=== PATIENT | male | born 1945 | race Caucasian/White ===

== ENCOUNTER → 2016-08-11 | Outpatient (CLI) | payer MEDICARE ==
[~2016-08-11] MED LIST: AMIT50TA3 PO; AMLO10TA82; AMLODIPINE; ASP81TEC; ASP81TEC PO; ATOR20TA66 PO; ATR20T PO; CLOP75TA PO; CYCL10TA9 PO; DICL100G20 TOP; ENAL2.5T PO; ENLP5T PO; FENO105T3 PO; FENO134C; FLUR30CA13; GEMF600T3 PO; HYDR-3714 PO; HYDR1CAP2; HYDR1CAP2 PO; INSU100I14 SQ; INSU100V6 SQ; LAMI100T PO; LANTUS; METO100T2 PO; METO50TA7 PO; MTP50T PO; NTR.4SL SL; OMEG-12 PO; PRM25T PO; ROSU20TA14 PO; SIRO1TAB PO; SIRO2TAB2 PO; TEMA30CA PO; ZOLP10TA5 PO
[2016-08-11 08:49] LABS: BASOPHILS % (AUTO) 1 % (0-10); EOSINOPHILS # (AUTO) 0.1 10^3/uL (0.0-0.3); EOSINOPHILS % (AUTO) 3 % (0-10); LYMPHOCYTES # (AUTO) 0.9 X 10^3 (1.0-4.0); LYMPHOCYTES % (AUTO) 27 % (12-44); MEAN CORPUSCULAR HEMOGLOBIN 25 PG (25-34); MEAN CORPUSCULAR HGB CONC 30 G/DL (32-36); MEAN CORPUSCULAR VOLUME 82 FL (80-99); MONOCYTES # (AUTO) 0.3 X 10^3 (0.0-1.0); MONOCYTES % (AUTO) 9 % (0-12); NEUTROPHILS # (AUTO) 1.9 X 10^3 (1.8-7.8); NEUTROPHILS % (AUTO) 60 % (42-75); RED BLOOD COUNT 4.12 10^6/uL (4.35-5.85); RED CELL DISTRIBUTION WIDTH 18.4 % (10.0-14.5); WHITE BLOOD COUNT 3.1 10^3/uL (4.3-11.0)
[2016-08-11 09:12] LABS: PLATELET COUNT 63 10^3/uL (130-400)
[2016-08-11 09:13] LABS: ALBUMIN 3.3 G/DL (3.2-4.5); BILIRUBIN,TOTAL 0.3 MG/DL (0.1-1.0); CALCIUM 8.5 MG/DL (8.5-10.1); CREATININE SERUM 3.54 MG/DL (0.60-1.30); MAGNESIUM 1.5 MG/DL (1.8-2.4); PHOSPHORUS 2.5 MG/DL (2.3-4.7); POTASSIUM 4.6 MMOL/L (3.6-5.0); TOTAL PROTEIN 6.3 G/DL (6.4-8.2)
== END ==
LOC: LAB 08:32
PROVIDERS: ATTEND Internal Medicine
DX: N17.9 Acute kidney failure, unspecified (principal); D63.1 Anemia in chronic kidney disease; N18.9 Chronic kidney disease, unspecified
CPT/HCPCS: 36415; 80053; 83735; 84100; 85025

== ENCOUNTER → 2016-09-01 | Outpatient (CLI) | payer MEDICARE ==
[2016-09-01 10:16] LABS: MEAN CORPUSCULAR HEMOGLOBIN 24 PG (25-34); MEAN CORPUSCULAR HGB CONC 31 G/DL (32-36); MEAN CORPUSCULAR VOLUME 79 FL (80-99); PLATELET COUNT 66 10^3/uL (130-400); RED BLOOD COUNT 4.65 10^6/uL (4.35-5.85); RED CELL DISTRIBUTION WIDTH 19.4 % (10.0-14.5); WHITE BLOOD COUNT 3.5 10^3/uL (4.3-11.0)
[2016-09-01 10:37] LABS: ALBUMIN 3.9 G/DL (3.2-4.5); CALCIUM 9.3 MG/DL (8.5-10.1); CREATININE SERUM 2.44 MG/DL (0.60-1.30); MAGNESIUM 1.6 MG/DL (1.8-2.4); PHOSPHORUS 2.4 MG/DL (2.3-4.7); POTASSIUM 4.1 MMOL/L (3.6-5.0); URIC ACID 7.2 MG/DL (2.6-7.2)
[2016-09-01 10:38] LABS: BILIRUBIN,URINE NEGATIVE (NEGATIVE); KETONES,URINE NEGATIVE (NEGATIVE); LEUKOCYTE ESTERASE ,URINE NEGATIVE (NEGATIVE); NITRITE,URINE NEGATIVE (NEGATIVE); PH,URINE 5 (5-9); PROTEIN,URINE 1+ (NEGATIVE); UROBILINOGEN,URINE NORMAL (NORMAL)
[2016-09-01 10:49] LABS: SQUAMOUS EPITHELIAL CELL,UR RARE /HPF
[2016-09-01 11:02] LABS: PROTEIN/CREATININE RATIO 0.2
[2016-09-04 08:04] LABS: CALCIUM PARA THYROID HORMONE 8.9 mg/dL (8.5-10.5); FOLIC ACID 7.4 ng/mL (1.5-24.0)
== END ==
LOC: LAB 09:44
PROVIDERS: ATTEND Internal Medicine Nephrology
DX: D63.1 Anemia in chronic kidney disease (principal); I12.9 Hypertensive chronic kidney disease with stage 1 through stage 4 chronic kidney disease, or unspecified chronic kidney disease; N18.4 Chronic kidney disease, stage 4 (severe); E87.2 Acidosis
CPT/HCPCS: 36415; 80069; 81000; 82306; 82570; 82607; 82728; 82746; 83540; 83735; 83970; 84156; 84550; 85027

== ENCOUNTER → 2016-10-03 | Outpatient (CLI) | payer MEDICARE ==
[2016-10-03 09:38] LABS: BILIRUBIN,URINE NEGATIVE (NEGATIVE); KETONES,URINE NEGATIVE (NEGATIVE); LEUKOCYTE ESTERASE ,URINE NEGATIVE (NEGATIVE); NITRITE,URINE NEGATIVE (NEGATIVE); PH,URINE 5 (5-9); PROTEIN,URINE 3+ (NEGATIVE); UROBILINOGEN,URINE NORMAL (NORMAL)
[2016-10-03 09:38] LABS: BASOPHILS % (AUTO) 0 % (0-10); EOSINOPHILS # (AUTO) 0.1 10^3/uL (0.0-0.3); EOSINOPHILS % (AUTO) 3 % (0-10); LYMPHOCYTES # (AUTO) 1.1 X 10^3 (1.0-4.0); LYMPHOCYTES % (AUTO) 29 % (12-44); MEAN CORPUSCULAR HEMOGLOBIN 25 PG (25-34); MEAN CORPUSCULAR HGB CONC 30 G/DL (32-36); MEAN CORPUSCULAR VOLUME 83 FL (80-99); MONOCYTES # (AUTO) 0.3 X 10^3 (0.0-1.0); MONOCYTES % (AUTO) 8 % (0-12); NEUTROPHILS # (AUTO) 2.3 X 10^3 (1.8-7.8); NEUTROPHILS % (AUTO) 60 % (42-75); PLATELET COUNT 77 10^3/uL (130-400); RED BLOOD COUNT 4.61 10^6/uL (4.35-5.85); RED CELL DISTRIBUTION WIDTH 20.7 % (10.0-14.5); WHITE BLOOD COUNT 3.8 10^3/uL (4.3-11.0)
[2016-10-03 09:51] LABS: SQUAMOUS EPITHELIAL CELL,UR RARE /HPF
[2016-10-03 09:51] LABS: ALBUMIN 3.8 G/DL (3.2-4.5); CREATININE SERUM 2.32 MG/DL (0.60-1.30); MAGNESIUM 1.7 MG/DL (1.8-2.4); PHOSPHORUS 3.1 MG/DL (2.3-4.7); POTASSIUM 4.4 MMOL/L (3.6-5.0); URIC ACID 7.9 MG/DL (2.6-7.2)
[2016-10-03 09:58] LABS: PROTEIN/CREATININE RATIO 0.39
[2016-10-04 07:07] LABS: CALCIUM PARA THYROID HORMONE 8.7 mg/dL (8.5-10.5); FOLIC ACID 9.4 ng/mL (1.5-24.0)
== END ==
LOC: LAB 09:00
PROVIDERS: ATTEND Internal Medicine Nephrology
DX: I12.9 Hypertensive chronic kidney disease with stage 1 through stage 4 chronic kidney disease, or unspecified chronic kidney disease (principal); N18.4 Chronic kidney disease, stage 4 (severe); D63.1 Anemia in chronic kidney disease
CPT/HCPCS: 36415; 80069; 81000; 82306; 82570; 82607; 82728; 82746; 83540; 83735; 83970; 84156; 84550; 85025

== ENCOUNTER → 2016-11-06 | Outpatient (CLI) | payer MEDICARE ==
[2016-11-06 12:20] LABS: MEAN CORPUSCULAR HEMOGLOBIN 25 PG (25-34); MEAN CORPUSCULAR HGB CONC 30 G/DL (32-36); MEAN CORPUSCULAR VOLUME 83 FL (80-99); PLATELET COUNT 60 10^3/uL (130-400); RED BLOOD COUNT 4.88 10^6/uL (4.35-5.85); RED CELL DISTRIBUTION WIDTH 18.9 % (10.0-14.5); WHITE BLOOD COUNT 4.3 10^3/uL (4.3-11.0)
[2016-11-06 12:21] LABS: BILIRUBIN,URINE NEGATIVE (NEGATIVE); KETONES,URINE NEGATIVE (NEGATIVE); LEUKOCYTE ESTERASE ,URINE NEGATIVE (NEGATIVE); NITRITE,URINE NEGATIVE (NEGATIVE); PH,URINE 5 (5-9); PROTEIN,URINE 2+ (NEGATIVE); UROBILINOGEN,URINE NORMAL (NORMAL)
[2016-11-06 12:29] LABS: SQUAMOUS EPITHELIAL CELL,UR 0-2 /HPF
[2016-11-06 12:38] LABS: PROTEIN/CREATININE RATIO 0.59
[2016-11-06 12:42] LABS: ALBUMIN 3.9 GM/DL (3.2-4.5); CALCIUM 9.4 MG/DL (8.5-10.1); CREATININE SERUM 2.18 MG/DL (0.60-1.30); MAGNESIUM 1.6 MG/DL (1.8-2.4); PHOSPHORUS 2.7 MG/DL (2.3-4.7); POTASSIUM 4.6 MMOL/L (3.6-5.0); URIC ACID 8.8 MG/DL (2.6-7.2)
[2016-11-07 08:06] LABS: FOLIC ACID 12.5 ng/mL (1.5-24.0)
== END ==
LOC: LAB 11:39
PROVIDERS: ATTEND Internal Medicine Nephrology
DX: D63.1 Anemia in chronic kidney disease; E87.2 Acidosis; N18.4 Chronic kidney disease, stage 4 (severe); I12.9 Hypertensive chronic kidney disease with stage 1 through stage 4 chronic kidney disease, or unspecified chronic kidney disease
CPT/HCPCS: 36415; 80069; 81000; 82306; 82570; 82607; 82728; 82746; 83540; 83735; 83970; 84156; 84550; 85027

== ENCOUNTER 2016-12-11 19:44 | Inpatient (IN) | payer MEDICARE ==
[~2016-12-11] VITALS: Ht 182.9 cm; Wt 86.6 kg
[2016-12-11] MEDS ORDERED: NS IV 1000 ML 1,000 ML IV ONE ×2 (20:20→21:27)
--- NOTE | 2016-12-11 20:20 | ED Fall/Injury ---
General Chief Complaint: General Problems/Pain Stated Complaint: CHEST PAIN/BODY NUMBNESS Source: patient, family (niece) Exam Limitations: clinical condition History of Present Illness Time seen by provider: 20:12 Initial Comments Patient comes ER with a primary complaint of having fallen in his home on the ground floor in the kitchen sometime between Sunday and today. He does not member the events immediately before during or after the fall. He is in pain all over. Says mostly though it is back and hips. He is not on any pain relievers. His niece says that he is a little confused right now and he drove over to her house this evening and was honking on the horn so she brought him to the ER. She says she went to his house and got his medicines and brought them here and that there is a large mess in the kitchen where he looks like he had laid there for a long time. Patient is not having any fevers, chills, shortness of breath, chest pain, nausea. He's had a liver transplant and is on immunosuppressants. He was recently put on some steroids for a bad case of poison bear. About 2 weeks ago he started in an experimental drug related to his transplant but is not sure what is called. He was 3 months ago in the hospital in [place] with C. difficile colitis and had a bad kidney injury. He was told by his doctor that he may need kidney transplants as well. He has type 2 diabetes. Allergies and Home Medications Allergies Coded Allergies: No Known Drug Allergies (Unverified , 08/24/09) Home Medications Amitriptyline Hcl 50 Mg Tab, 50 MG PO HS, (Reported) Aspirin 81 Mg Tabec, 81 MG PO DAILY, (Reported) Atorvastatin 20 Mg Tablet, 10 MG PO HS, (Reported) TAKES ONE HALF (20MG) TABLET AT BEDTIME Enalapril Maleate 5 Mg Tab, 5 MG PO DAILY, (Reported) Fenofibric Acid 105 Mg Tablet, 105 MG PO DAILY, (Reported) Hydrocodone Bit/Acetaminophen 1 Tab Tablet, 1 TAB PO BID PRN for SEVERE PAIN, ( Reported) NEEDED FOR SEVERE PAIN 5/325MG TABLET Insulin Aspart 100 Unit/1 Ml Insuln.pen, 7 UNITS SQ AC, (Reported) Insulin Glargine,Hum.rec.anlog 100 Unit/1 Ml Vial, 54 UNIT SQ HS, (Reported) Lamivudine 100 Mg Tablet, 50 MG PO DAILY, (Reported) TAKES ONE-HALF (100MG) TABLET DAILY Metoprolol Tartrate 100 Mg Tablet, 50 MG PO BID, (Reported) TAKE ONE-HALF (100MG) TABLET TWICE A DAY Nitroglycerin 0.4 Mg Tab, 0 SL UD PRN for CHEST PAIN, (Reported) 1 TABLET EVERY 5 MINUTES UPTO 3 DOSES NEEDED FOR CHEST PAIN Sirolimus 1 Mg Tablet, 2 MG PO DAILY, (Reported) TAKES 2 (1 MG) TABLETS DAILY Zolpidem Tartrate 10 Mg Tablet, 10 MG PO HS PRN for SLEEP, (Reported) NEEDED FOR SLEEP Constitutional: No chills, No diaphoresis, No fever, No malaise Eyes: Denies Blindness, Denies Blurred Vision, Denies Drainage, Denies Pain Ears, Nose, Mouth, Throat: denies ear pain, denies ear discharge Respiratory: No cough, No dyspnea on exertion, No short of breath Cardiovascular: see HPI, No chest pain, No palpitations, syncope, No vascular heart diseas Gastrointestinal: abdominal pain (diffuse), No constipation, No diarrhea, No dysphagia, No nausea, No vomiting Genitourinary: No discharge, No dysuria, No frequency Musculoskeletal: back pain, No joint pain, No joint swelling Skin: No pruritus, No rash Psychiatric/Neurological: Denies Headache, Denies Numbness, Denies Paresthesia , Denies Seizure Past Uyhwews-Zuczzt-Edzqij Hx Patient Social History Alcohol Use: Denies Use Recreational Drug Use: No Smoking Status: Never a Smoker Recent Foreign Travel: No Contact w/Someone Who Travel: No Recent Hopitalizations: Yes (04/2011 [facility] [employer]) Immunizations Up To Date Date of Pneumonia Vaccine: Jan 07, 2013 Date of Influenza Vaccine: May 01, 2011 Surgeries Surgeries: CABG, Liver Transplant Respiratory Hx Respiratory Disorders: No Cardiovascular Hx Cardiac Disorders: No Cardiac Disorders: Coronary Artery Disease, Heart Attack, High Cholesterol, Hypertension Neurological Hx Neurological Disorders: No Neurological Disorders: Parkinson's Disease Reproductive System Hx Reproductive Disorders: No Sexually Transmitted Disease: Yes (hep b) Genitourinary Hx Genitourinary Disorders: No Genitourinary Disorders: Renal Failure Gastrointestinal Hx Gastrointestinal Disorders: No Gastrointestinal Disorders: Hepatitis Musculoskeletal Hx Musculoskeletal Disorders: No Musculoskeletal Disorders: Chronic Back Pain Endocrine Hx Endocrine Disorders: Yes Endocrine Disorders: Diabetes, Insulin dep HEENT HX ENT Disorders: No Cancer Hx Cancer: No Cancer: Skin Psychosocial Hx Psychiatric Problems: No Blood Transfusions Hx Blood Disorders: No Physical Exam Vital Signs Vital Sign - Last 12Hours 12/11/16 20:11 Temp 99.4 Pulse 106 Resp 26 B/P (MAP) 175/97 Pulse Ox 96 Capillary Refill : General Appearance: WD/WN, mild distress HEENT: PERRL/EOMI, normal ENT inspection, TMs normal, other (mucous membranes are dry) Neck: full range of motion, supple, normal inspection, tender lateral Cardiovascular: normal peripheral pulses, regular rate, rhythm, no edema, no murmur Respiratory: chest non-tender, lungs clear, normal breath sounds Gastrointestinal: normal bowel sounds, soft, no organomegaly, no pulsatile mass , tenderness (all 4 quadrants), No hernia Rectal: normal exam Back: normal inspection, vertebral tenderness (thoracic and lumbar) Extremities: normal range of motion, non-tender, normal inspection, no pedal edema, normal capillary refill 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/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, alert, other (oriented times self and place but not situation) Skin: normal color, warm/dry, other (scattered abrasions on the shoulders and neck from either poison bear or bee stings per patient) Lymphatic: no adenopathy Progress/Results/Core Measures Results/Orders Lab Results Laboratory Tests Test 12/11/16 19:56 12/11/16 20:40 12/11/16 21:03 Range/Units White Blood Count 4.7 4.3-11.0 10^3/uL Red Blood Count 5.38 4.35-5.85 10^6/uL Hemoglobin 13.7 13.3-17.7 G/DL Hematocrit 44 40-54 % Mean Corpuscular Volume 81 80-99 FL Mean Corpuscular Hemoglobin 26 25-34 PG Mean Corpuscular Hemoglobin Concent 31 L 32-36 G/DL Red Cell Distribution Width 17.8 H 10.0-14.5 % Platelet Count 72 L 130-400 10^3/uL Mean Platelet Volume 7.4-10.4 FL Neutrophils (%) (Auto) 51 42-75 % Lymphocytes (%) (Auto) 39 12-44 % Monocytes (%) (Auto) 9 0-12 % Eosinophils (%) (Auto) 1 0-10 % Basophils (%) (Auto) 0 0-10 % Neutrophils # (Auto) 2.4 1.8-7.8 X 10^3 Lymphocytes # (Auto) 1.8 1.0-4.0 X 10^3 Monocytes # (Auto) 0.4 0.0-1.0 X 10^3 Eosinophils # (Auto) 0.1 0.0-0.3 10^3/uL Basophils # (Auto) 0.0 0.0-0.1 10^3/uL Prothrombin Time 13.2 12.2-14.7 SEC INR Comment 1.0 0.8-1.4 Activated Partial Thromboplast Time 29 24-35 SEC Sodium Level 134 L 135-145 MMOL/L Potassium Level 4.7 3.6-5.0 MMOL/L Chloride Level 102 98-107 MMOL/L Carbon Dioxide Level 16 L 21-32 MMOL/L Anion Gap 16 H 5-14 MMOL/L Blood Urea Nitrogen 42 H 7-18 MG/DL Creatinine 2.89 H 0.60-1.30 MG/DL Estimat Glomerular Filtration Rate 22 BUN/Creatinine Ratio 15 Glucose Level 325 H 70-105 MG/DL Calcium Level 9.8 8.5-10.1 MG/DL Phosphorus Level 3.9 2.3-4.7 MG/DL Magnesium Level 2.4 1.8-2.4 MG/DL Total Bilirubin 0.9 0.1-1.0 MG/DL Aspartate Amino Transf (AST/SGOT) 16 5-34 U/L Alanine Aminotransferase (ALT/SGPT) 18 0-55 U/L Alkaline Phosphatase 153 H 40-136 U/L Total Creatine Kinase 118 30-200 U/L Creatine Kinase MB 1.0 <6.6 NG/ML Troponin I < 0.30 <0.30 NG/ML Total Protein 7.7 6.4-8.2 GM/DL Albumin 3.9 3.2-4.5 GM/DL Lipase 9 8-78 U/L Thyroid Stimulating Hormone (TSH) 1.48 0.35-4.94 UIU/ML Acetaminophen Level < 10 L 10-30 UG/ML Serum Alcohol < 10 <10 MG/DL Lactic Acid Level 1.06 0.50-2.00 MMOL/L Ammonia 27 11-32 UMOL/L Urine Color YELLOW Urine Clarity CLEAR Urine pH 5 5-9 Urine Specific [place] 1.015 L 1.016-1.022 Urine Protein 3+ H NEGATIVE Urine Glucose (UA) 4+ H NEGATIVE Urine Ketones 1+ H NEGATIVE Urine Nitrite NEGATIVE NEGATIVE Urine Bilirubin NEGATIVE NEGATIVE Urine Urobilinogen NORMAL NORMAL MG/DL Urine Leukocyte Esterase NEGATIVE NEGATIVE Urine RBC (Auto) 1+ H NEGATIVE Urine RBC RARE /HPF Urine WBC 0-2 /HPF Urine Squamous Epithelial Cells 0-2 /HPF Urine Crystals NONE /LPF Urine Bacteria TRACE /HPF Urine Casts PRESENT /LPF Urine Hyaline Casts 2-5 H /LPF Urine White Blood Cell Casts RARE H /LPF Urine Mucus SMALL H /LPF Urine Culture Indicated NO Urine Opiates Screen NEGATIVE NEGATIVE Urine Oxycodone Screen NEGATIVE NEGATIVE Urine Methadone Screen NEGATIVE NEGATIVE Urine Propoxyphene Screen NEGATIVE NEGATIVE Urine Barbiturates Screen NEGATIVE NEGATIVE Ur Tricyclic Antidepressants Screen POSITIVE H NEGATIVE Urine Phencyclidine Screen NEGATIVE NEGATIVE Urine Amphetamines Screen NEGATIVE NEGATIVE Urine Methamphetamines Screen NEGATIVE NEGATIVE Urine Benzodiazepines Screen NEGATIVE NEGATIVE Urine Cocaine Screen NEGATIVE NEGATIVE Urine Cannabinoids Screen NEGATIVE NEGATIVE My Orders Orders - ANN BURNS Ct Head/Cervical Spine Wo (12/11/16 20:20) Saline Lock/Iv-Start (12/11/16 20:20) Acetaminophen (12/11/16 20:20) Alcohol (12/11/16 20:20) Cbc With Automated Diff (12/11/16 20:20) Comprehensive Metabolic Panel (12/11/16 20:20) Creatine Kinase Mb (12/11/16 20:20) Drug Screen Stat (Urine) (12/11/16 20:20) Lactic Acid Analyzer (12/11/16 20:20) Lipase (12/11/16 20:20) Magnesium (12/11/16 20:20) Protime With Inr (12/11/16 20:20) Partial Thromboplastin Time (12/11/16 20:20) Thyroid Stimulating Hormone (12/11/16 20:20) Troponin I (12/11/16 20:20) Ua Culture If Indicated (12/11/16 20:20) Phosphorus (12/11/16 20:20) Saline Lock/Iv-Start (12/11/16 20:20) Ns Iv 1000 Ml (Sodium Chloride 0.9%) (12/11/16 20:20) Ct Chest/Abdomen/Pelvis Wo (12/11/16 20:20) Ammonia (12/11/16 20:44) Creatine Kinase (12/11/16 21:14) Ns Iv 1000 Ml (Sodium Chloride 0.9%) (12/11/16 21:27) Fentanyl Injection (Sublimaze Injection (12/11/16 23:00) Ceftriaxone Injection (Rocephin Injectio (12/11/16 23:00) Medications Given in ED Current Medications Medications Dose Ordered Sig/Anthony Route Start Time Stop Time Status Last Admin Dose Admin Sodium Chloride 1,000 ml @ 0 mls/hr Q0M ONCE IV 12/11/16 20:20 12/11/16 20:24 DC 12/11/16 21:10 0 MLS/HR Sodium Chloride 1,000 ml @ 0 mls/hr Q0M ONCE IV 12/11/16 21:27 12/11/16 21:28 DC 12/11/16 22:51 0 MLS/HR Vital Signs/I&O Vital Sign - Last 12Hours 12/11/16 20:11 Temp 99.4 Pulse 106 Resp 26 B/P (MAP) 175/97 Pulse Ox 96 Progress Note #1: Time: 20:52 Progress Note Found down scenario we'll check a CK-MB as well as look for the origin either cardiac, septic, stroke. He is out of the window for TPA. Progress Note #2: Time: 21:28 Progress Note Patient doesn't look septic however he looks very dry and has mild anion gap acidosis with normal lactate. We'll going give him another liter and get his CAT scan and plan on putting him in patient. ECG Initial ECG Impression Date: Dec 11, 2016 Initial ECG Impression Time: 19:50 Initial ECG Rate: 106 Initial ECG Rhythm: S.Tach Initial ECG Intervals: [place] (160) Initial ECG Impression: Nonspecific Changes Initial ECG Comparisson: No Previous ECG Available Comment No significant ST-T wave elevation or depression Diagnostic Imaging Diagonstic Imaging: CT (chest abdomen pelvis) Plain Films/CT/US/NM/MRI: chest, abdomen, pelvis Comments VIA [facility]. [place], [place] NAME: SHELIA PHILIP [facility] REC#: [id number] PT STATUS: REG ER : 1945 PHYSICIAN: ANN BURNS MD ADMIT DATE: 12/11/16/ER Draft Date of Exam:12/11/16 CT CHEST/ABDOMEN/PELVIS WO PROCEDURE: CT chest, abdomen, and pelvis without contrast. TECHNIQUE: Multiple contiguous axial images were obtained through the chest, abdomen, and pelvis without the use of intravenous contrast. INDICATION: Chest pain. Body numbness. COMPARISON: 08/30/2009 CT CHEST: Cardiomediastinal structures show normal heart size. There is no large pericardial effusion. Postsurgical changes of previous CABG are noted. There is calcified aortic and coronary atherosclerosis. No pathologically enlarged or morphologically abnormal adenopathy is seen within the mediastinum, shubham, or axilla. Evaluation of the lung michelle demonstrate small right-sided pleural effusion on the right. There is some associated atelectasis on the right. No large effusion is seen on the left. There are scattered areas of groundglass density throughout the remaining aerated portions of the lungs, bilaterally. No pneumothorax is seen on either side. Bony structures show no acute abnormalities. CT ABDOMEN: Small bowel loops are nondistended. Normal appendix is identified. Evaluation of the kidneys demonstrate nonobstructive renal calculi on the right. There is also mild/moderate asymmetric atrophy of the right kidney. No renal calculi are seen on the left. No ureteral calculi are identified on either side. Additionally, there is no hydroureteronephrosis or other evidence of obstruction. No focal renal mass type lesions are identified on this noncontrast exam. The spleen, pancreas, adrenal glands, and liver have an unremarkable noncontrast CT appearance. There is no loculated fluid collection, free fluid, or free air within the abdomen. No abnormal mesenteric or retroperitoneal adenopathy is seen. Bony structures show age-related degenerative changes. There is mild calcified aortic and arterial atherosclerosis. There is a fat-containing periumbilical hernia to the right lateral of midline. Ostium measures 1.[address] PELVIS: The urinary bladder is unopacified. No calculi are seen within the urinary bladder. There is no loculated fluid collection, free fluid, or free air within the pelvis. No abnormal lymph nodes are seen. Bony structures show no acute abnormalities. IMPRESSION: 1. Patchy groundglass densities seen scattered throughout both lungs. Findings are nonspecific, but are concerning for infiltrate. Followup with serial chest radiographs is recommended. 2. Small right-sided effusion. 3. Multiple nonobstructive right renal calculi and mild to moderate asymmetric atrophy of the right kidney. 4. Small fat-containing periumbilical hernia. Dictated on workstation # [id number] Dict: 12/11/162149 Trans: 12/11/162200 [facility] [id number] Interpreted by: KATIE LAN Electronically signed by: Reviewed: Reviewed by Me Diagonstic Imaging: CT Plain Films/CT/US/NM/MRI: c-spine, head Comments VIA [place], [place] NAME: SHELIA PHILIP [facility] REC#: [id number] PT STATUS: REG ER : 1945 PHYSICIAN: ANN BURNS MD ADMIT DATE: 12/11/16/ER Draft Date of Exam:12/11/16 CT HEAD/CERVICAL SPINE WO PROCEDURE: CT head and CT cervical spine without contrast. TECHNIQUE: Multiple contiguous axial images were obtained through the brain and cervical spine without the use of intravenous contrast. Sagittal and coronal reformations through the cervical spine were then performed. INDICATION: Chest pain. Body numbness. COMPARISON: 06/13/2010 FINDINGS: CT head: The ventricles and cortical sulci are diffusely prominent, compatible with age-related volume loss. There are confluent areas of abnormal, low attenuation in the periventricular white matter. This is consistent with chronic small vessel ischemic changes. There is no midline shift or mass-effect. No acute intra-axial hemorrhage is seen. There are no abnormal areas of increased or decreased density to suggest acute hemorrhage or edema. No extra-axial masses or collections are present. The bony calvarium is intact. The visualized paranasal sinuses are unremarkable. The mastoid air cells are clear. CT cervical spine: Static alignment of the cervical spine is maintained. There is no significant anteroretrolisthesis. There is no evidence of jumped facets. Vertebral body heights are maintained. There is no evidence of acute fracture. No bony fragments are seen within the spinal canal. There are multilevel degenerative changes consisting of intervertebral disc height loss with anterior and posterior disc osteophyte complex formations, as well as multilevel facet arthropathy. Pre-and paravertebral soft tissue structures are unremarkable. Included portions of the lung apices are unremarkable. Note is made of calcified carotid atherosclerosis. IMPRESSION: 1. No acute intracranial abnormality. No CT evidence of mass, acute infarct or intracranial hemorrhage. 2. Chronic small vessel ischemic changes in deep white matter. 3. No CT evidence of acute fracture or dislocation of the cervical spine. 4. Moderate diffuse degenerative changes of the cervical spine. Dictated on workstation # [id number] Dict: 12/11/165 Trans: 12/11/16 22[facility] [id number] Interpreted by: KATIE LAN Electronically signed by: Reviewed: Reviewed by Me Departure Communication Time/Spoke to Admitting Phy: 22:31 Communication odgers; discussed the case, history and the patient still being altered as well as his ever transplant and elevated creatinine. He wants to going to the patient 's home meds and is okay with just using a gram or Rocephin at this time. His vitals are okay he is okay putting patient on the floor and following up with him in the morning. Impression Impression: Primary Impression: Fall Qualified Codes: W19.XXXA - Unspecified fall, initial encounter Disposition: ADMITTED INPATIENT Condition: Stable Admissions Decision to Admit Reason: Admit from ER (General) Decision to Admit/Date: Dec 11, 2016 Time/Decision to Admit Time: 22:58 Departure-Patient Inst. Referrals: YADI MESSINA MD (PCP/Family) Primary Care Physician Copy Copies To 1: YADI MESSINA MD, TITUS J Dec 11, 2016 20:20
[2016-12-11 20:45] LABS: BASOPHILS % (AUTO) 0 % (0-10); EOSINOPHILS # (AUTO) 0.1 10^3/uL (0.0-0.3); EOSINOPHILS % (AUTO) 1 % (0-10); LYMPHOCYTES # (AUTO) 1.8 X 10^3 (1.0-4.0); LYMPHOCYTES % (AUTO) 39 % (12-44); MEAN CORPUSCULAR HEMOGLOBIN 26 PG (25-34); MEAN CORPUSCULAR HGB CONC 31 G/DL (32-36); MEAN CORPUSCULAR VOLUME 81 FL (80-99); MONOCYTES # (AUTO) 0.4 X 10^3 (0.0-1.0); MONOCYTES % (AUTO) 9 % (0-12); NEUTROPHILS # (AUTO) 2.4 X 10^3 (1.8-7.8); NEUTROPHILS % (AUTO) 51 % (42-75); PLATELET COUNT 72 10^3/uL (130-400); RED BLOOD COUNT 5.38 10^6/uL (4.35-5.85); RED CELL DISTRIBUTION WIDTH 17.8 % (10.0-14.5); WHITE BLOOD COUNT 4.7 10^3/uL (4.3-11.0)
[2016-12-11 20:52] LABS: PROTHROMBIN TIME PATIENT 13.2 SEC (12.2-14.7)
[2016-12-11 21:00] LABS: ALANINE AMINOTRANSFERASE 18 U/L (0-55); ALBUMIN 3.9 GM/DL (3.2-4.5); ALCOHOL < 10 MG/DL (<10); ANION GAP 16 MMOL/L (5-14); ASPARTATE AMINO TRANSFERASE 16 U/L (5-34); BILIRUBIN,TOTAL 0.9 MG/DL (0.1-1.0); BLOOD UREA NITROGEN 42 MG/DL (7-18); BUN/CREATININE RATIO 15; CALCIUM 9.8 MG/DL (8.5-10.1); CARBON DIOXIDE 16 MMOL/L (21-32); CHLORIDE 102 MMOL/L (98-107); CREATININE SERUM 2.89 MG/DL (0.60-1.30); GFR ESTIMATED 22; GLUCOSE 325 MG/DL (70-105); LIPASE 9 U/L (8-78); MAGNESIUM 2.4 MG/DL (1.8-2.4); PHOSPHORUS 3.9 MG/DL (2.3-4.7); POTASSIUM 4.7 MMOL/L (3.6-5.0); SODIUM 134 MMOL/L (135-145); TOTAL PROTEIN 7.7 GM/DL (6.4-8.2)
[2016-12-11 21:08] LABS: ACETAMINOPHEN < 10 UG/ML (10-30)
[2016-12-11 21:14] LABS: BILIRUBIN,URINE NEGATIVE (NEGATIVE); KETONES,URINE 1+ (NEGATIVE); LEUKOCYTE ESTERASE ,URINE NEGATIVE (NEGATIVE); NITRITE,URINE NEGATIVE (NEGATIVE); PH,URINE 5 (5-9); PROTEIN,URINE 3+ (NEGATIVE); UROBILINOGEN,URINE NORMAL (NORMAL)
[2016-12-11 21:23] LABS: THYROID STIMULATING HORMONE 1.48 UIU/ML (0.35-4.94); TROPONIN I < 0.30 NG/ML (<0.30)
[2016-12-11 21:26] LABS: SQUAMOUS EPITHELIAL CELL,UR 0-2 /HPF; WBC,URINE 0-2 /HPF; WHITE BLOOD CELL CASTS, URINE RARE /LPF
--- NOTE | 2016-12-11 22:01 | Diagnostic Imaging Report ---
PROCEDURE: CT chest, abdomen, and pelvis without contrast. TECHNIQUE: Multiple contiguous axial images were obtained through the chest, abdomen, and pelvis without the use of intravenous contrast. INDICATION: Chest pain. Body numbness. COMPARISON: 08/30/2009 CT CHEST: Cardiomediastinal structures show normal heart size. There is no large pericardial effusion. Postsurgical changes of previous CABG are noted. There is calcified aortic and coronary atherosclerosis. No pathologically enlarged or morphologically abnormal adenopathy is seen within the mediastinum, shubham, or axilla. Evaluation of the lung michelle demonstrate small right-sided pleural effusion on the right. There is some associated atelectasis on the right. No large effusion is seen on the left. There are scattered areas of groundglass density throughout the remaining aerated portions of the lungs, bilaterally. No pneumothorax is seen on either side. Bony structures show no acute abnormalities. CT ABDOMEN: Small bowel loops are nondistended. Normal appendix is identified. Evaluation of the kidneys demonstrate nonobstructive renal calculi on the right. There is also mild/moderate asymmetric atrophy of the right kidney. No renal calculi are seen on the left. No ureteral calculi are identified on either side. Additionally, there is no hydroureteronephrosis or other evidence of obstruction. No focal renal mass type lesions are identified on this noncontrast exam. The spleen, pancreas, adrenal glands, and liver have an unremarkable noncontrast CT appearance. There is no loculated fluid collection, free fluid, or free air within the abdomen. No abnormal mesenteric or retroperitoneal adenopathy is seen. Bony structures show age-related degenerative changes. There is mild calcified aortic and arterial atherosclerosis. There is a fat-containing periumbilical hernia to the right lateral of midline. Ostium measures 1.[address] PELVIS: The urinary bladder is unopacified. No calculi are seen within the urinary bladder. There is no loculated fluid collection, free fluid, or free air within the pelvis. No abnormal lymph nodes are seen. Bony structures show no acute abnormalities. IMPRESSION: 1. Patchy groundglass densities seen scattered throughout both lungs. Findings are nonspecific, but are concerning for infiltrate. Followup with serial chest radiographs is recommended. 2. Small right-sided effusion. 3. Multiple nonobstructive right renal calculi and mild to moderate asymmetric atrophy of the right kidney. 4. Small fat-containing periumbilical hernia. Dictated by: Dictated on workstation # [id number]
--- NOTE | 2016-12-11 22:12 | Diagnostic Imaging Report ---
PROCEDURE: CT head and CT cervical spine without contrast. TECHNIQUE: Multiple contiguous axial images were obtained through the brain and cervical spine without the use of intravenous contrast. Sagittal and coronal reformations through the cervical spine were then performed. INDICATION: Chest pain. Body numbness. COMPARISON: 06/13/2010 FINDINGS: CT head: The ventricles and cortical sulci are diffusely prominent, compatible with age-related volume loss. There are confluent areas of abnormal, low attenuation in the periventricular white matter. This is consistent with chronic small vessel ischemic changes. There is no midline shift or mass-effect. No acute intra-axial hemorrhage is seen. There are no abnormal areas of increased or decreased density to suggest acute hemorrhage or edema. No extra-axial masses or collections are present. The bony calvarium is intact. The visualized paranasal sinuses are unremarkable. The mastoid air cells are clear. CT cervical spine: Static alignment of the cervical spine is maintained. There is no significant anteroretrolisthesis. There is no evidence of jumped facets. Vertebral body heights are maintained. There is no evidence of acute fracture. No bony fragments are seen within the spinal canal. There are multilevel degenerative changes consisting of intervertebral disc height loss with anterior and posterior disc osteophyte complex formations, as well as multilevel facet arthropathy. Pre-and paravertebral soft tissue structures are unremarkable. Included portions of the lung apices are unremarkable. Note is made of calcified carotid atherosclerosis. IMPRESSION: 1. No acute intracranial abnormality. No CT evidence of mass, acute infarct or intracranial hemorrhage. 2. Chronic small vessel ischemic changes in deep white matter. 3. No CT evidence of acute fracture or dislocation of the cervical spine. 4. Moderate diffuse degenerative changes of the cervical spine. Dictated by: Dictated on workstation # [id number]
[2016-12-11] MEDS ORDERED: cefTRIAXone INJECTION 1,000 MG in NS (IVPB) 50 ML IV ONE (23:00)
[2016-12-11] MEDS ORDERED: fentaNYL INJECTION 100 MCG/2 ML AMP IVP ONE (23:00)
[2016-12-12 00:59] VITALS: BP 166/97
[2016-12-12] MEDS ORDERED: ONDANSETRON 4 MG/2 ML (SDV) Z0FRAN IV PRN (01:00)
[2016-12-12] MEDS ORDERED: meTOprolol TARTRATE 50 MG (LOPRESSOR) TAB ONE (01:10)
[2016-12-12] MEDS: NS IV 1000 ML 1,000 ML IV SCH ×2 (01:12→14:27)
[2016-12-12] MEDS: meTOprolol TARTRATE 50 MG (LOPRESSOR) TAB PO SCH ×2 (01:17→09:11)
[2016-12-12] MEDS: ACETAMINOPHEN 500 MG TAB (TYLENOL) PO PRN ×2 (01:36→09:52)
[2016-12-12 03:01] VITALS: BP 166/97
[2016-12-12 04:00] VITALS: BP 159/78
[2016-12-12 07:15] LABS: BASOPHILS % (AUTO) 0 % (0-10); EOSINOPHILS # (AUTO) 0.1 10^3/uL (0.0-0.3); EOSINOPHILS % (AUTO) 2 % (0-10); LYMPHOCYTES # (AUTO) 1.4 X 10^3 (1.0-4.0); LYMPHOCYTES % (AUTO) 42 % (12-44); MEAN CORPUSCULAR HEMOGLOBIN 26 PG (25-34); MEAN CORPUSCULAR HGB CONC 31 G/DL (32-36); MEAN CORPUSCULAR VOLUME 83 FL (80-99); MONOCYTES # (AUTO) 0.4 X 10^3 (0.0-1.0); MONOCYTES % (AUTO) 10 % (0-12); NEUTROPHILS # (AUTO) 1.5 X 10^3 (1.8-7.8); NEUTROPHILS % (AUTO) 46 % (42-75); PLATELET COUNT 54 10^3/uL (130-400); RED BLOOD COUNT 4.54 10^6/uL (4.35-5.85); RED CELL DISTRIBUTION WIDTH 17.4 % (10.0-14.5); WHITE BLOOD COUNT 3.4 10^3/uL (4.3-11.0)
[2016-12-12 07:37] LABS: ALBUMIN 3.3 GM/DL (3.2-4.5); BILIRUBIN,TOTAL 0.6 MG/DL (0.1-1.0); CALCIUM 8.5 MG/DL (8.5-10.1); CREATININE SERUM 2.4 MG/DL (0.60-1.30); POTASSIUM 4.5 MMOL/L (3.6-5.0); TOTAL PROTEIN 6.3 GM/DL (6.4-8.2)
[2016-12-12 08:00] VITALS: BP 140/73
[2016-12-12] MEDS ORDERED: inSUlin DETERMIR 1 UNIT/0.01 ML (LEVEMIR) CHARGE PER UNIT SQ SCH (09:00)
[2016-12-12] MEDS ORDERED: SIROLIMUS 1 MG PO SCH (09:00)
[2016-12-12] MEDS ORDERED: PATIENT MAY USE OWN MED,SINGLE MED PO SCH (09:00)
--- NOTE | 2016-12-12 09:29 | Diagnostic Imaging Report ---
PA and lateral chest 829 hours INDICATION: Fever and shortness of breath. FINDINGS: The cardiomegaly and the sternal wires and surgical clips noted on the prior exam of 08/30/11 are again evident and no different. The CT chest exam performed 12/11/16 noted groundglass densities in both lungs as well as a small right pleural effusion with associated atelectasis. The groundglass densities are difficult to appreciate on this study. There does seem to be some blunting of the costophrenic angle on the right posteriorly as this may account for the small right pleural effusion. Thee is no sign of failure or pneumonia. The mediastinum is not widened. The osseous structures are intact. IMPRESSION: The groundglass densities in both lungs seen on the recent chest exam are difficult to appreciate on this study. There still appears to be a small amount of fluid in the right lung base. There is no new cardiopulmonary abnormality noted otherwise. Dictated by: Dictated on workstation # [id number]
[2016-12-12 12:00] VITALS: BP 139/67
--- NOTE | 2016-12-12 12:25 | Short Stay Summary-Hospitalist ---
HPI History of Present Illness: HPI/Chief Complaint The patient is a 71-year-old white male who is community physician is Dr. Flores. He was brought to the emergency room late yesterday by his niece. Her concern was that he had fallen at his home and had been down an unknown period of time. She felt that he was quite confused. He told the ER staff that he may have been on the floor in his home since Sunday. Today he is much more clear about things and reports that he lives across the [address] from a [employer] in [place], [place]. He recalled wishing his [facility] and a lady from [employer] called over with her blessings as well. He reports that he had little recollection but apparently had fallen on the floor in his kitchen later on Sunday afternoon or early evening. When he became aware of things again it was apparently late and at [place] or dark in his home. He had considerable difficulty getting to his feet. He states that he broke 2 chairs and the effort but ultimately was able to arise. He went upstairs and got dressed. He then drove 2 blocks to his niece' s home and she drove him here. His history is important in that 16 years ago he had a liver transplant at [facility] in [place]. His antirejection meds are adjusted through them even now. He reports that earlier this spring or summer he had seen Dr. Flores at the office and laboratory work was done. The staff could then not reach him and ultimately called the [facility] who went to the patient's home and found him distressed. Apparently the creatinine at Dr. jose's office was elevated. The patient was taken by ambulance to [place] and the patient states that the creatinine at that time was 7.2. Concern had been voiced over whether he was now going to require kidney transplant. He has been contemplating this but is not clear whether he would go for this. As he discussed this he appeared emotional and near tears at times. He reports that he is feeling much better today and the details are much clear to him. It appears that he has had no new medications that would have caused any of these troubles although he has been using a sleeping pill and this has seemed to cause a bit of a hangover. He believes the name was Yadira. He reports pain in the area of his right hip and right shoulder and believes he must fallen in that direction. Date Seen 12/12/16 Time Seen by Provider: 12:16 Attending Physician Gilbert Fiore MD PCP Wilfred Flores MD Referring Physician Date of Admission Dec 11, 2016 at 22:50 Home Medications & Allergies Home Medications Reviewed patient Home Medication Reconciliation Form Allergies Allergies Coded Allergies No Known Drug Allergies (Unverified08/24/09) Past Wylybre-Uvigou-Zizdqh Hx Patient Social History Alcohol Use: Denies Use Recreational Drug Use: No Smoking Status: Never a Smoker Physical Abuse Screen: No Sexual Abuse: No Recent Foreign Travel: No Contact w/other who traveled: No Recent Hopitalizations: No Recent Infectious Disease Expo: No Immunizations Up To Date Date of Pneumonia Vaccine: Jan 07, 2013 Date of Influenza Vaccine: May 01, 2011 Seasonal Allergies Seasonal Allergies: No Surgeries Surgeries: CABG, Liver Transplant Respiratory Hx Respiratory Disorders: No Cardiovascular Hx Cardiovascular Disorders: No Cardiac Disorders: Coronary Artery Disease, Heart Attack, High Cholesterol, Hypertension Neurological Hx Neurological Disorders: No Neurological Disorders: Parkinson's Disease Reproductive System Hx Reproductive Disorders: No Sexually Transmitted Disease: Yes Genitourinary Hx Genitourinary Disorders: No Genitourinary Disorders: Renal Failure Gastrointestinal Hx Gastrointestinal Disorders: No Gastrointestinal Disorders: Hepatitis Musculoskeletal Hx Musculoskeletal Disorders: No Musculoskeletal Disorders: Chronic Back Pain Endocrine Hx Endocrine Disorders: Yes Endocrine Disorders: Diabetes, Insulin dep HEENT HX ENT Disorders: No Cancer Hx Cancer: No Cancer: Skin Psychosocial Hx Psychiatric Problems: No Behavioral Health Disorders: Depression Blood Transfusions Hx Blood Disorders: No Review of Systems Constitutional: see HPI EENTM: no symptoms reported Respiratory: no symptoms reported Cardiovascular: Hx of Intervention, vascular heart diseas Gastrointestinal: other (recent history of diarrhea secondary to Clostridium difficile. He does not give a history of concomitant antibiotic use.) Musculoskeletal: back pain, muscle pain Skin: pruritus, rash, other (petechia) Psychiatric/Neurological: Anxiety, Depressed Physical Exam Physical Exam Vital Signs Vital Sign - Last 12Hours 12/11/16 12/12/16 12/12/16 20:11 00:03 03:01 Temp 99.4 Pulse 106 Resp 26 B/P (MAP) 175/97 Pulse Ox 96 O2 Delivery Room Air FiO2 21 Capillary Refill : Less Than 3 Seconds General Appearance: Mild Distress Eyes: Bilateral Eye Normal Inspection Neck: Normal Inspection Respiratory: Chest Non Tender, Lungs Clear, Normal Breath Sounds, No Accessory Muscle Use, No Respiratory Distress Cardiovascular: Regular Rate, Rhythm, No Edema, No Gallop, No JVD, No Murmur, Normal Peripheral Pulses Gastrointestinal: Normal Bowel Sounds, No Organomegaly, No Pulsatile Mass, Non Tender, Soft Back: Normal Inspection Extremity: Normal Capillary Refill, Normal Inspection, Normal Range of Motion, Non Tender, No Calf Tenderness, No Pedal Edema Neurologic/Psychiatric: Alert, Oriented x3, No Motor/Sensory Deficits, Normal 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 2.history of liver transplant 16 years ago. 3.renal failure acute on chronic. 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 5.dehydration. 6.depression. Final Discharge Diagnosis 1.syncopal episode/fall at home. 2.acute on chronic renal failure/dehydration. 3.chronic immunosuppression relative to liver transplant now 16 years ago. 4.arteriosclerotic heart disease post coronary artery bypass Conclusion Plan Complete hydration. Discussed with Dr. Flores. Pain relief. Clinical Quality Measures DVT/VTE Risk/Contraindication: Risk Factor Score Per Nursin RFS Level Per Nursing on Admit: 3=High GILBERT FIORE MD Dec 12, 2016 12:25
--- NOTE | 2016-12-12 14:30 | Discharge Instructions ---
Discharge Instructions Patient Instructions Patient Instructions: Resume medications as on the med list. See Dr. Messina this week as scheduled. Take plenty of fluids Activity & Diet Discharge Diet: No Restrictions Copy Copies To 1: YADI MESSINA MD,SIVAN Hinkle MD Dec 12, 2016 14:30
[2016-12-12 16:50] VITALS: BP 139/67
[2016-12-12] MEDS ORDERED: AMITRIPTYLINE 25 MG (ELAVIL) TAB PO SCH (21:00)
[2016-12-12] MEDS ORDERED: ATORVASTATIN 20 MG (LIPITOR) TABLET PO SCH (21:00)
== END 2016-12-12 16:00 | disposition home or self-care (01) | DRG 683 ==
LOC: EDUNIT# 19:44 → ER 19:46 → 4TH 22:50
PROVIDERS: ADMIT Internal Medicine; ATTEND Internal Medicine
DX: N17.9 Acute kidney failure, unspecified (principal); E86.0 Dehydration; I12.9 Hypertensive chronic kidney disease with stage 1 through stage 4 chronic kidney disease, or unspecified chronic kidney disease; N18.9 Chronic kidney disease, unspecified; Z94.4 Liver transplant status; R55 Syncope and collapse; I25.10 Atherosclerotic heart disease of native coronary artery without angina pectoris; F32.9 Major depressive disorder, single episode, unspecified; F41.9 Anxiety disorder, unspecified; Z66 Do not resuscitate; M25.551 Pain in right hip; M25.511 Pain in right shoulder; E11.9 Type 2 diabetes mellitus without complications; I25.2 Old myocardial infarction; E78.00 Pure hypercholesterolemia, unspecified; G20 Parkinson's disease; M54.9 Dorsalgia, unspecified; W19.XXXA Unspecified fall, initial encounter; Y92.000 Kitchen of unspecified non-institutional (private) residence as the place of occurrence of the external cause; Z95.1 Presence of aortocoronary bypass graft; Z79.899 Other long term (current) drug therapy; Z86.19 Personal history of other infectious and parasitic diseases
CPT/HCPCS: 36415; 70450; 71020; 71250; 72125; 74176; 80053; 80306; 80320; 80329; 81000; 82140; 82550; 82553; 83605; 83690; 83735; 84100; 84443; 84484; 85025; 85610; 85730; 93005; 94010; 94664; 94760; 96361; 96365; 96375

== ENCOUNTER → 2017-01-05 | Outpatient (CLI) | payer MEDICARE ==
[2017-01-05 14:27] LABS: BASOPHILS % (AUTO) 0 % (0-10); EOSINOPHILS # (AUTO) 0.1 10^3/uL (0.0-0.3); EOSINOPHILS % (AUTO) 2 % (0-10); LYMPHOCYTES # (AUTO) 1.3 X 10^3 (1.0-4.0); LYMPHOCYTES % (AUTO) 38 % (12-44); MEAN CORPUSCULAR HEMOGLOBIN 25 PG (25-34); MEAN CORPUSCULAR HGB CONC 31 G/DL (32-36); MEAN CORPUSCULAR VOLUME 82 FL (80-99); MONOCYTES # (AUTO) 0.3 X 10^3 (0.0-1.0); MONOCYTES % (AUTO) 9 % (0-12); NEUTROPHILS # (AUTO) 1.8 X 10^3 (1.8-7.8); NEUTROPHILS % (AUTO) 51 % (42-75); PLATELET COUNT 57 10^3/uL (130-400); RED BLOOD COUNT 5.27 10^6/uL (4.35-5.85); RED CELL DISTRIBUTION WIDTH 17.7 % (10.0-14.5); WHITE BLOOD COUNT 3.4 10^3/uL (4.3-11.0)
[2017-01-05 14:29] LABS: BILIRUBIN,URINE NEGATIVE (NEGATIVE); KETONES,URINE NEGATIVE (NEGATIVE); LEUKOCYTE ESTERASE ,URINE 2+ (NEGATIVE); NITRITE,URINE NEGATIVE (NEGATIVE); PH,URINE 5 (5-9); PROTEIN,URINE 3+ (NEGATIVE); UROBILINOGEN,URINE NORMAL (NORMAL)
[2017-01-05 14:39] LABS: ALBUMIN 3.8 GM/DL (3.2-4.5); CALCIUM 9.3 MG/DL (8.5-10.1); CREATININE SERUM 2.27 MG/DL (0.60-1.30); MAGNESIUM 2.2 MG/DL (1.8-2.4); PHOSPHORUS 2.9 MG/DL (2.3-4.7); POTASSIUM 3.9 MMOL/L (3.6-5.0); URIC ACID 7.4 MG/DL (2.6-7.2)
[2017-01-05 14:54] LABS: WBC,URINE 0-2 /HPF
[2017-01-05 14:55] LABS: YEAST,URINE FEW /HPF
[2017-01-05 15:03] LABS: PROTEIN/CREATININE RATIO 0.45
[2017-01-08 07:57] LABS: FOLIC ACID 15.1 ng/mL (1.5-24.0)
== END ==
LOC: LAB 13:43
PROVIDERS: ATTEND Internal Medicine Nephrology
DX: I12.9 Hypertensive chronic kidney disease with stage 1 through stage 4 chronic kidney disease, or unspecified chronic kidney disease (principal); N18.4 Chronic kidney disease, stage 4 (severe); D63.1 Anemia in chronic kidney disease
CPT/HCPCS: 36415; 80069; 81000; 82306; 82570; 82607; 82728; 82746; 83540; 83735; 83970; 84156; 84550; 85025

== ENCOUNTER 2017-05-01 18:05 | Emergency (ER) | payer MEDICARE ==
[~2017-05-01] VITALS: Ht 182.9 cm; Wt 81.6 kg
[2017-05-01] MEDS ORDERED: LACTATED RINGERS 1,000 ML IV ONE ×2 (18:26→19:04)
[2017-05-01] MEDS ORDERED: PIPERACILLIN SODIUM/TAZOBACTAM 4.5 GM in NS (IVPB) 100 ML IV ONE (18:30)
--- NOTE | 2017-05-01 18:40 | ED General ---
General Chief Complaint: Exposure Stated Complaint: FALL Source of Information: Patient, EMS Exam Limitations: Physical Impairments History of Present Illness Time Seen by Provider: 18:22 Initial Comments Patient resists ER by EMS with a chief complaint that EMS was called to come pick him up when the family found him down in the living room with his house and cold to the touch but breathing, alert and answering in one word answers. EMS reports that the last known well time was 2100 yesterday when family last checked on him. They brought his medicines in with him checked a blood sugar and said it was 1- teens and delivered 1 L of normal saline warmed through his IV. EMS says the patient speaking better now has a history of Parkinson's. Patient gives history that he also had a liver transplant and still on Sirolimus since 2000. He has hepatitis B and is on Lamivudine. He also says she' s had open heart surgery and is diabetic on insulin but he does not think he is taking his medications are insulin today. He does not member what happened if he fell or if he had chest pain. He says he does have a history of chronic diarrhea and constipation. Antidiarrheal loperamide was in his medications from home. He does not recall being nauseated, short of breath, coughing, chest pain , fevers, chills, head pain. He does not know if he struck his head or neck. The patient states he is on blood thinners but is not sure what the name of them are and they are not included in his medications from home. He is also on metoprolol, amlodipine, atorvastatin, aspirin. Patient was in his living room and he uses a would fired stove to heat his house. He lives alone so he was tending to the stove and EMS reports it was cold in the house. EMS reports that the tincture was 90.8 Fahrenheit on arrival and 91.2 after their initial interventions. His blood pressure initially was 84 systolic but improved to over 100 after they started fluids. Daughter arrived and has given the report that the patient has central heat and air not a woodstove. She says the reason he was cold because he was lying on the kitchen floor and the floors cold. She says he has usually been very cognizant and good about taking care of himself however he has had problems with insomnia secondary to the immunosuppressant medications that he is on for his liver transplant and so he has been given Ambien in the past but whenever he takes Ambien he acts like a zombie has lots of falls and has been in the hospital before for this. She has counted his meds and thinks he is taking for 5 Ambien at night. He is been told not to be on the Ambien that she has found other bottles from other doctors who she does not recognize the name of. Allergies and Home Medications Allergies Coded Allergies: No Known Drug Allergies (Unverified , 08/24/09) Home Medications Amitriptyline Hcl 50 Mg Tab, 50 MG PO HS, (Reported) Aspirin 81 Mg Tabec, 81 MG PO DAILY, (Reported) Atorvastatin 20 Mg Tablet, 10 MG PO HS, (Reported) TAKES ONE HALF (20MG) TABLET AT BEDTIME Fenofibric Acid 105 Mg Tablet, 105 MG PO DAILY, (Reported) Insulin Glargine,Hum.rec.anlog 100 Unit/1 Ml Vial, 40 UNIT SQ BID, (Reported) Lamivudine 100 Mg Tablet, 50 MG PO DAILY, (Reported) TAKES ONE-HALF (100MG) TABLET DAILY Metoprolol Tartrate 100 Mg Tablet, 50 MG PO BID, (Reported) TAKE ONE-HALF (100MG) TABLET TWICE A DAY Nitroglycerin 0.4 Mg Tab, 0 SL UD PRN for CHEST PAIN, (Reported) 1 TABLET EVERY 5 MINUTES UPTO 3 DOSES NEEDED FOR CHEST PAIN Sirolimus 1 Mg Tablet, 2 MG PO DAILY, (Reported) TAKES 2 (1 MG) TABLETS DAILY Constitutional: see HPI (a detailed list of review of systems is difficult to obtain secondary to patient's clinical condition.), No chills, No diaphoresis, No fever EENTM: No ear discharge, No ear pain, No vision loss, No dental problems, No hoarseness, No mouth pain, No mouth swelling Respiratory: No cough, No phlegm, No short of breath, No wheezing Cardiovascular: No chest pain, No edema, Hx of Intervention, No palpitations, vascular heart diseas Gastrointestinal: abdominal pain (all over is 80), constipation, diarrhea, No nausea, No vomiting Genitourinary: No discharge, No dysuria Musculoskeletal: No back pain, No joint pain Skin: No pruritus, No rash Past Pcpawin-Qqypdh-Izetvt Hx Patient Social History Alcohol Use: Occasionally Uses Alcohol Beverage of Choice: Beer Recreational Drug Use: No Smoking Status: Never a Smoker Recent Hopitalizations: No Immunizations Up To Date Date of Pneumonia Vaccine: Jan 07, 2013 Date of Influenza Vaccine: May 01, 2011 Seasonal Allergies Seasonal Allergies: No Surgeries History of Surgeries: Yes (angiogram, hernia ) Surgeries: CABG, Liver Transplant Respiratory History of Respiratory Disorde: No Cardiovascular History of Cardiac Disorders: Yes Cardiac Disorders: Coronary Artery Disease, Heart Attack, High Cholesterol, Hypertension Neurological History of Neurological Disord: Yes Neurological Disorders: Parkinson's Disease Reproductive System Hx Reproductive Disorders: No Sexually Transmitted Disease: Yes Genitourinary History of Genitourinary Disor: Yes Genitourinary Disorders: Renal Failure Gastrointestinal History of Gastrointestinal Di: Yes (liver transplant) Gastrointestinal Disorders: Hepatitis Musculoskeletal History of Musculoskeletal Dis: No Musculoskeletal Disorders: Chronic Back Pain Endocrine History of Endocrine Disorders: Yes Endocrine Disorders: Diabetes, Insulin dep HEENT History of HEENT Disorders: No Cancer History of Cancer: Yes Cancer: Skin Psychosocial History of Psychiatric Problem: Yes Behavioral Health Disorders: Depression Integumentary History of Skin or Integumenta: No Blood Transfusions History of Blood Disorders: No Physical Exam-Suspected Sepsis Physical Exam Vital Signs Vital Sign - Last 12Hours 05/01/17 18:05 Temp 91.0 Pulse 75 Resp 18 B/P (MAP) 99/74 (82) Pulse Ox 99 O2 Delivery Nasal Cannula O2 Flow Rate 2.00 Capillary Refill : General Appearance: Anxious, Moderate Distress Eyes: Bilateral Eye Normal Inspection, Bilateral Eye PERRL, Bilateral Eye EOMI HEENT: PERRL/EOMI, TMs Normal, No Moist Mucous Membranes (oral mucosa is very dry) Neck: Full Range of Motion, Non Tender, Supple Respiratory: Chest Non Tender, Lungs Clear, Normal Breath Sounds, No Accessory Muscle Use, No Respiratory Distress Cardiovascular: Regular Rate, Rhythm, No Edema Gastrointestinal: Normal Bowel Sounds, No Organomegaly, Non Tender, Soft Rectal: Normal Exam, Normal Rectal Tone Genital/Rectal: Normal Genital Exam, Normal Rectal Exam, Normal Rectal Tone Back: Normal Inspection Extremity: Normal Inspection, Non Tender, No Calf Tenderness, No Pedal Edema, Slow Capillary Refill Neurologic/Psychiatric: Alert, Oriented x3, Depressed Affect (slow to answer) Skin: mottled (purple mottled feet and ankles bilaterally as well as bluish hue to the hands.) Lymphatic: No Adenopathy Focused Exam Evaluation Lactate Level Laboratory Tests 05/01/17 18:20: Lactic Acid Level 4.05*H 05/01/17 20:17: Lactic Acid Level 2.46*H Time of Focused Exam: 22:26 Respiratory: Chest Non Tender, Lungs Clear, Normal Breath Sounds, No Accessory Muscle Use, No Respiratory Distress Cardiovascular: Regular Rate, Rhythm, No Edema, Other (mottled distal extremities with 1+ pulses in the dorsal pedal bilateral and symmetric and delayed capillary refill in the toes.) Capillary Refill: Greater Than 3 Seconds Peripheral Pulses: 1+ Dorsalis Pedis (R), 1+ Left Dors-Pedis (L), 2+ Radial Pulses (R), 2+ Radial Pulses (L) Skin: cool, mottled Lactic Acid Level Laboratory Tests Test 05/01/17 20:17 Lactic Acid Level 2.46 MMOL/L (0.50-2.00) *H Progress/Results/Core Measures Suspected Sepsis SIRS Temperature: Pulse: Respiratory Rate: Laboratory Tests 05/01/17 18:20: White Blood Count 9.0 Blood Pressure / Mean: Laboratory Tests 05/01/17 18:20: Lactic Acid Level 4.05*H 05/01/17 20:17: Lactic Acid Level 2.46*H Laboratory Tests 05/01/17 18:20: Creatinine 5.00H, INR Comment 1.3, Platelet Count 27*L, Total Bilirubin 0.8 Results/Orders Lab Results Laboratory Tests Test 05/01/17 18:20 05/01/17 18:47 05/01/17 18:49 05/01/17 18:53 Range/Units White Blood Count 9.0 4.3-11.0 10^3/uL Red Blood Count 4.24 L 4.35-5.85 10^6/uL Hemoglobin 10.9 L 13.3-17.7 G/DL Hematocrit 35 L 40-54 % Mean Corpuscular Volume 81 80-99 FL Mean Corpuscular Hemoglobin 26 25-34 PG Mean Corpuscular Hemoglobin Concent 32 32-36 G/DL Red Cell Distribution Width 19.2 H 10.0-14.5 % Platelet Count 27 *L 130-400 10^3/uL Mean Platelet Volume 7.4-10.4 FL Neutrophils (%) (Auto) 84 H 42-75 % Lymphocytes (%) (Auto) 7 L 12-44 % Monocytes (%) (Auto) 9 0-12 % Eosinophils (%) (Auto) 0 0-10 % Basophils (%) (Auto) 0 0-10 % Neutrophils # (Auto) 7.5 1.8-7.8 X 10^3 Lymphocytes # (Auto) 0.6 L 1.0-4.0 X 10^3 Monocytes # (Auto) 0.8 0.0-1.0 X 10^3 Eosinophils # (Auto) 0.0 0.0-0.3 10^3/uL Basophils # (Auto) 0.0 0.0-0.1 10^3/uL Neutrophils % (Manual) 57 % Lymphocytes % (Manual) 7 % Monocytes % (Manual) 13 % Eosinophils % (Manual) 0 % Basophils % (Manual) 0 % Band Neutrophils 23 % Nucleated Red Blood Cells 1 Poikilocytosis MODERATE Anisocytosis SLIGHT Crenated Cell SLIGHT Elliptocytes SLIGHT Prothrombin Time 16.1 H 12.2-14.7 SEC INR Comment 1.3 0.8-1.4 Activated Partial Thromboplast Time 38 H 24-35 SEC D-Dimer 1.25 H 0.00-0.49 UG/ML Sodium Level 140 135-145 MMOL/L Potassium Level 6.7 #*H 3.6-5.0 MMOL/L Chloride Level 108 H 98-107 MMOL/L Carbon Dioxide Level 12 L 21-32 MMOL/L Anion Gap 20 H 5-14 MMOL/L Blood Urea Nitrogen 98 H 7-18 MG/DL Creatinine 5.00 H 0.60-1.30 MG/DL Estimat Glomerular Filtration Rate 11 BUN/Creatinine Ratio 20 Glucose Level 113 H 70-105 MG/DL Lactic Acid Level 4.05 *H 0.50-2.00 MMOL/L Calcium Level 7.8 L 8.5-10.1 MG/DL Phosphorus Level 10.5 H 2.3-4.7 MG/DL Magnesium Level 2.6 H 1.8-2.4 MG/DL Total Bilirubin 0.8 0.1-1.0 MG/DL Aspartate Amino Transf (AST/SGOT) 174 H 5-34 U/L Alanine Aminotransferase (ALT/SGPT) 87 H 0-55 U/L Alkaline Phosphatase 130 40-136 U/L Ammonia 32 11-32 UMOL/L Total Creatine Kinase 8926 H 30-200 U/L Troponin I < 0.30 <0.30 NG/ML Total Protein 6.1 L 6.4-8.2 GM/DL Albumin 3.0 L 3.2-4.5 GM/DL Lipase 5 L 8-78 U/L Serum Alcohol < 10 <10 MG/DL Urine Color YELLOW Urine Clarity CLEAR Urine pH 5 5-9 Urine Specific [place] 1.015 L 1.016-1.022 Urine Protein 2+ H NEGATIVE Urine Glucose (UA) 4+ H NEGATIVE Urine Ketones NEGATIVE NEGATIVE Urine Nitrite NEGATIVE NEGATIVE Urine Bilirubin NEGATIVE NEGATIVE Urine Urobilinogen NORMAL NORMAL MG/DL Urine Leukocyte Esterase NEGATIVE NEGATIVE Urine RBC (Auto) NEGATIVE NEGATIVE Urine RBC NONE /HPF Urine WBC NONE /HPF Urine Squamous Epithelial Cells RARE /HPF Urine Crystals NONE /LPF Urine Bacteria NONE /HPF Urine Casts NONE /LPF Urine Mucus NEGATIVE /LPF Urine Culture Indicated NO Urine Opiates Screen NEGATIVE NEGATIVE Urine Oxycodone Screen NEGATIVE NEGATIVE Urine Methadone Screen NEGATIVE NEGATIVE Urine Propoxyphene Screen NEGATIVE NEGATIVE Urine Barbiturates Screen NEGATIVE NEGATIVE Ur Tricyclic Antidepressants Screen POSITIVE H NEGATIVE Urine Phencyclidine Screen NEGATIVE NEGATIVE Urine Amphetamines Screen NEGATIVE NEGATIVE Urine Methamphetamines Screen NEGATIVE NEGATIVE Urine Benzodiazepines Screen NEGATIVE NEGATIVE Urine Cocaine Screen NEGATIVE NEGATIVE Urine Cannabinoids Screen NEGATIVE NEGATIVE Glucometer 98 70-110 MG/DL Carboxyhemoglobin 2.1 0.5-2.5 % Test 05/01/17 20:17 05/01/17 20:26 Range/Units Lactic Acid Level 2.46 *H 0.50-2.00 MMOL/L Glucometer 190 H 70-110 MG/DL Micro Results Microbiology 05/01/17 Influenza Types A,B Antigen (JERSON) - Final, Complete My Orders Orders - ANN BURNS Cbc With Automated Diff (05/01/17 18:26) Comprehensive Metabolic Panel (05/01/17 18:26) Lactic Acid Analyzer (05/01/17 18:26) Blood Culture (05/01/17 18:26) Sputum Culture (05/01/17 18:26) Ua Culture If Indicated (05/01/17 18:26) Protime With Inr (05/01/17 18:26) Partial Thromboplastin Time (05/01/17 18:26) O2 (05/01/17 18:26) Saline Lock/Iv-Start (05/01/17 18:26) Saline Lock/Iv-Start (05/01/17 18:26) Troponin I (05/01/17 18:26) Piperacillin Sodium/Tazobactam (Zosyn Vi (05/01/17 18:30) Vital Signs Adult Sepsis Patie Q1H (05/01/17 18:26) Remove Rings In Anticipation O (05/01/17 18:26) Influenza A And B Antigens (05/01/17 18:26) Alcohol (05/01/17 18:26) Ammonia (05/01/17 18:26) Carboxyhemoglobin (05/01/17 18:26) Fibrin Degradation Products (05/01/17 18:26) Lipase (05/01/17 18:26) Magnesium (05/01/17 18:) Phosphorus (05/01/17 18:26) Lactated Ringers (Lr 1000 Ml Iv Solution (05/01/17 18:26) Continuous Ekg Monitoring (05/01/17 18:26) Ekg Tracing (05/01/17 18:26) Accucheck Stat ONCE (05/01/17 18:26) Creatine Kinase (05/01/17 18:26) Macarena Gerardogger (05/01/17 18:26) Bedrest For (#Of Hours) (05/01/17 18:26) Chest 1 View, Ap/Pa Only (05/01/17 18:40) Manual Differential (05/01/17 18:20) Shell Cath Insertion (05/01/17 19:04) Lactated Ringers (Lr 1000 Ml Iv Solution (05/01/17 19:04) Calcium Gluconate 10% Inj (Calcium Gluco (05/01/17 19:15) Dextrose 10% Iv Akanksha... W/Insulin Regular (05/01/17 19:15) Drug Screen Stat (Urine) (05/01/17 19:14) Dextrose 10% Iv Akanksha... W/Insulin Regular (05/01/17 19:30) Aspirin Chewable Tablet (Baby Aspirin Ch (05/01/17 19:30) Oseltamivir 75 Mg (10's) Caps (Tamiflu 7 (05/01/17 21:00) Sodium Bicarbonate 8.4% Syr (Sodium Bica (1/2/18 20:00) Albuterol Pre-Mix Nebs (Rt) (Proventil (05/01/17 20:00) Svn Sm Volume Nebulizer Rt-Rfs (05/01/17 19:54) Ct Head/Cervical Spine Wo (05/01/17 ) Accucheck Stat ONCE (05/01/17 20:21) Medications Given in ED Current Medications Medications Dose Ordered Sig/Anthony Route Start Time Stop Time Status Last Admin Dose Admin Aspirin 162 mg ONCE ONCE PO 05/01/17 19:30 05/01/17 19:31 DC 05/01/17 19:58 162 MG Calcium Gluconate 4.65 meq ONCE ONCE IV 05/01/17 19:15 05/01/17 19:16 DC 05/01/17 19:33 4.65 MEQ Insulin Human Regular 10 units/ Dextrose 1,000.1 ml @ 0 mls/hr Q0M ONCE IV 05/01/17 19:15 05/01/17 19:16 DC 05/01/17 19:38 500 MLS/HR Lactated Ringer's 1,000 ml @ 0 mls/hr Q0M ONCE IV 05/01/17 18:26 05/01/17 18:35 DC 05/01/17 18:20 1,000 MLS/HR Lactated Ringer's 1,000 ml @ 0 mls/hr Q0M ONCE IV 05/01/17 19:04 05/01/17 19:15 DC 05/01/17 18:57 0 MLS/HR Piperacillin Sod/ Tazobactam Sod 4.5 gm/Sodium Chloride 100 ml @ 200 mls/hr ONCE ONCE IV 05/01/17 18:30 05/01/17 18:59 DC 05/01/17 19:18 200 MLS/HR Sodium Bicarbonate 100 meq ONCE ONCE IV 05/01/17 20:00 05/01/17 20:01 DC 05/01/17 20:02 100 MEQ Vital Signs/I&O Vital Sign - Last 12Hours 05/01/17 05/01/17 05/01/17 18:05 18:05 20:15 Temp 91.0 Pulse 75 Resp 18 B/P (MAP) 99/74 (82) Pulse Ox 99 95 99 O2 Delivery Nasal Cannula Room Air O2 Flow Rate 2.00 Capillary Refill : Progress Note #1: Time: 18:50 Progress Note We will begin rewarming initial temperature here in the ER was 91 which was about the same as at the scene per EMS. Warm IV fluids, bear hugger, warming blankets and limit his movement. We've obtained labs and we'll look for source of his issue by getting a CT scan of his head look for sepsis, troponin and EKG. Progress Note #2: Time: 19:41 Progress Note Creatinine is typically 2.2-2.5 and today is 5.0. His platelets may be because of the liver transplant or complicated by the hypothermia. We will give calcium gluconate and then because his sugars gone down from 110-90 minute go ahead and give him D10 water with 10 units or regular insulin per 500 cc also bring down his potassium as well as treat his sugar. His lactate is 4.05 and we have given 3 L and the D5 water will be the start of the next liter. ECG Initial ECG Impression Date: May 01, 2017 Initial ECG Impression Time: 18:27 Initial ECG Rate: 77 Initial ECG Rhythm: Normal Sinus Initial ECG Intervals: QRS (178) Initial ECG Impression: Nonspecific Changes Initial ECG Comparisson: No Previous ECG Available Comment Lots of artifact but there appears to be sinus rhythm without T-wave elevation or depression. Diagnostic Imaging Diagonstic Imaging: Xray Plain Films/CT/US/NM/MRI: chest Comments Cardiomegaly with some pulmonary edema bilaterally. VIA [facility]. [place], [place] NAME: SHELIA PHILIP [facility] REC#: [id number] PT STATUS: REG ER : 1945 PHYSICIAN: ANN BURNS MD ADMIT DATE: 05/01/17/ER Draft Date of Exam:05/01/17 CHEST 1 VIEW, AP/PA ONLY INDICATION: Fall COMPARISON: 12/12/2016 TECHNIQUE: Single frontal radiograph of the chest dated 05/01/2017. FINDINGS: Postsurgical changes of a CABG. The cardiac silhouette is significantly enlarged, appearing more prominent than prior examination. Extensive bilateral pulmonary opacities are present. Small bilateral pleural effusions. No pneumothorax. No acute osseous abnormality. IMPRESSION: Extensive bilateral pulmonary opacities. Findings may relate to pulmonary edema given significant enlargement of the heart, which has increased since the prior examination. Recommend clinical correlation. Dictated on workstation # [id number] Dict: 05/01/172151 Trans: 05/01/172205 ALLEN [id number] Interpreted by: AMAN ROBBNIS MD Electronically signed by: Reviewed: Reviewed by Me Diagonstic Imaging: CT Plain Films/CT/US/NM/MRI: c-spine, head Comments No intracranial hemorrhage, mass effect, tumor seen. C-spine without acute osseous fracture/subluxation. VIA [place], [place] NAME: SHELIA PHILIP [facility] REC#: [id number] PT STATUS: REG ER : 1945 PHYSICIAN: ANN BURNS MD ADMIT DATE: 05/01/17/ER Draft Date of Exam:05/01/17 CT HEAD/CERVICAL SPINE WO PROCEDURE: CT head and CT cervical spine without contrast. TECHNIQUE: Multiple contiguous axial images were obtained through the brain and cervical spine without the use of intravenous contrast. Sagittal and coronal reformations through the cervical spine were then performed. INDICATION: Fall COMPARISON: 12/11/2016 FINDINGS: Moderate atrophy. No intracranial hemorrhage. No intracranial mass, mass effect, midline shift, herniation, hydrocephalus, or extra-axial fluid collection. Hyperdensities overlying the bilateral frontal lobes felt to relate to beam hardening artifact. No definite CT evidence of an acute ischemic infarction. Scattered vascular calcifications. The orbits are unremarkable. The paranasal sinuses are clear. The calvarium and extracalvarial soft tissues are unremarkable. Alignment of the cervical spine is well maintained. Alignment of the atlantooccipital joint is well maintained. Vertebral body heights are well-maintained. Scattered disc space height loss is again noted. No acute fracture or dislocation. No destructive osseous process. Scattered facet joint degenerative changes and uncovertebral joint hypertrophy. No high-grade osseous central canal stenosis. Paraspinal soft tissues are unremarkable. IMPRESSION: No acute intracranial abnormality. No acute osseous abnormality within the cervical spine with mild scattered degenerative changes. Moderate intracranial atrophy. Dictated on workstation # [id number] Dict: 05/01/[id number] Trans: 05/01/172158 ALLEN [id number] Interpreted by: AMAN ROBBINS MD Electronically signed by: Reviewed: Reviewed by Me Consults Consults : Consulting Physician: SIVAN FIORE MD Consults Notes Discussed with IM and they feel he will need intensivists and Nephrology. Departure Impression Impression: Primary Impression: Hypothermia Qualified Codes: T68.XXXA - Hypothermia, initial encounter Additional Impressions: Exposure Qualified Codes: T75.89XA - Other specified effects of external causes, initial encounter Hypotension Qualified Codes: I95.9 - Hypotension, unspecified Hyperkalemia Traumatic rhabdomyolysis Qualified Codes: T79.6XXA - Traumatic ischemia of muscle, initial encounter Fall Qualified Codes: W19.XXXA - Unspecified fall, initial encounter Acute kidney injury Septic shock Thrombocytopenia History of coronary artery disease History of liver transplant Chronic anemia Delirium Disposition: ADMITTED INPATIENT Condition: Stable Transfer Time Spoke to Accepting Phy: 19:40 Transfer Progress Notes Kenney Jeffers taste tester. Dr. Mccollum ER [place] as long as the CT scan does not show a nontraumatic subarachnoid hemorrhage they will take the patient. He does recommend going give to answer bicarbonate and 10 mg of albuterol small-volume nebulizer in addition to the calcium gluconate and insulin sugar water. Transfer Time: 23:00 Transfer Facility: [place], [place] Method of Transfer: EMS Departure-Patient Inst. Referrals: YADI MESSINA MD (PCP/Family) Primary Care Physician Copy Copies To 1: YADI MESSINA MD, TITUS J May 01, 2017 18:40
[2017-05-01 18:41] LABS: BASOPHILS % (AUTO) 0 % (0-10); EOSINOPHILS % (AUTO) 0 % (0-10); HEMATOCRIT 35 % (40-54); HEMOGLOBIN 10.9 G/DL (13.3-17.7); LYMPHOCYTES # (AUTO) 0.6 X 10^3 (1.0-4.0); LYMPHOCYTES % (AUTO) 7 % (12-44); MEAN CORPUSCULAR HEMOGLOBIN 26 PG (25-34); MEAN CORPUSCULAR HGB CONC 32 G/DL (32-36); MEAN CORPUSCULAR VOLUME 81 FL (80-99); MONOCYTES # (AUTO) 0.8 X 10^3 (0.0-1.0); MONOCYTES % (AUTO) 9 % (0-12); NEUTROPHILS # (AUTO) 7.5 X 10^3 (1.8-7.8); NEUTROPHILS % (AUTO) 84 % (42-75); RED BLOOD COUNT 4.24 10^6/uL (4.35-5.85); RED CELL DISTRIBUTION WIDTH 19.2 % (10.0-14.5)
[2017-05-01 18:59] LABS: BILIRUBIN,URINE NEGATIVE (NEGATIVE); CLARITY,URINE CLEAR; COLOR,URINE YELLOW; GLUCOSE, URINE (UA) 4+ (NEGATIVE); KETONES,URINE NEGATIVE (NEGATIVE); LEUKOCYTE ESTERASE ,URINE NEGATIVE (NEGATIVE); NITRITE,URINE NEGATIVE (NEGATIVE); PH,URINE 5 (5-9); PROTEIN,URINE 2+ (NEGATIVE); UROBILINOGEN,URINE NORMAL (NORMAL)
[2017-05-01 19:01] LABS: BUN/CREATININE RATIO 20; CARBON DIOXIDE 12 MMOL/L (21-32); CHLORIDE 108 MMOL/L (98-107); GFR ESTIMATED 11; GLUCOSE 113 MG/DL (70-105); SODIUM 140 MMOL/L (135-145)
[2017-05-01 19:02] LABS: ALANINE AMINOTRANSFERASE 87 U/L (0-55); ALKALINE PHOSPHATASE 130 U/L (40-136); AMMONIA 32 UMOL/L (11-32); BILIRUBIN,TOTAL 0.8 MG/DL (0.1-1.0); CALCIUM 7.8 MG/DL (8.5-10.1); LIPASE 5 U/L (8-78); MAGNESIUM 2.6 MG/DL (1.8-2.4); PHOSPHORUS 10.5 MG/DL (2.3-4.7); TOTAL PROTEIN 6.1 GM/DL (6.4-8.2)
[2017-05-01 19:04] LABS: POTASSIUM 6.7 MMOL/L (3.6-5.0)
[2017-05-01 19:06] LABS: CREATINE KINASE 8926 U/L (30-200)
[2017-05-01 19:08] LABS: PLATELET COUNT 27 10^3/uL (130-400)
[2017-05-01 19:09] LABS: SQUAMOUS EPITHELIAL CELL,UR RARE /HPF
[2017-05-01 19:12] LABS: INR 1.3 (0.8-1.4); PROTHROMBIN TIME PATIENT 16.1 SEC (12.2-14.7)
[2017-05-01 19:15] LABS: ANISOCYTOSIS SLIGHT; BAND NEUTROPHILS 23 %; BASOPHILS % (MANUAL) 0 %; CRENATED RBC SLIGHT; ELLIPT/OVALOCYTES SLIGHT; EOSINOPHILS % (MANUAL) 0 %; FIBRIN DEGRADATION PRODUCTS 1.25 UG/ML (0.00-0.49); LYMPHOCYTES % (MANUAL) 7 %; MONOCYTES % (MANUAL) 13 %; NEUTROPHILS % (MANUAL) 57 %; NUCLEATED RED BLOOD CELLS 1; POIKILOCYTOSIS MODERATE
[2017-05-01] MEDS ORDERED: DEXTROSE 10% IV ONE ×2 (19:15→19:30)
[2017-05-01] MEDS ORDERED: DRIP ONLY IV ONE ×2 (19:15→19:30)
[2017-05-01] MEDS ORDERED: INSULIN REGULAR TPN IV ONE ×2 (19:15→19:30)
[2017-05-01] MEDS ORDERED: CALCIUM GLUC. 10% 4.65 MEQ/10 ML VIAL IV ONE (19:15)
[2017-05-01 19:30] LABS: AMPHETAMINE SCREEN, URINE NEGATIVE (NEGATIVE); BARBITURATE SCREEN URINE NEGATIVE (NEGATIVE); BENZODIAZEPINES SCREEN URINE NEGATIVE (NEGATIVE); CANNABINOID SCREEN, URINE NEGATIVE (NEGATIVE); COCAINE SCREEN URINE NEGATIVE (NEGATIVE); METHAMPHETAMINE SCREEN URINE S NEGATIVE (NEGATIVE); OPIATE SCREEN URINE NEGATIVE (NEGATIVE)
[2017-05-01] MEDS ORDERED: ASPIRIN 81 MG CHEW (CHILDREN'S ASA) PO ONE (19:30)
[2017-05-01 19:31] LABS: METHADONE STAT NEGATIVE (NEGATIVE); OXYCODONE STAT NEGATIVE (NEGATIVE); PROPOXYPHENE STAT NEGATIVE (NEGATIVE); TRICYCLIC ANTIDEPRESSANTS SCRE POSITIVE (NEGATIVE)
[2017-05-01] MEDS ORDERED: RT-ALBUTEROL SULF 2.5 MG/3 ML PRE-MIX VIAL INH SCH (20:00)
[2017-05-01] MEDS ORDERED: SODIUM BICARB 8.4% 50 MEQ/50 ML (ABBOTT) SYR IV ONE (20:00)
[2017-05-01] MEDS ORDERED: OSELTAMIVIR 75 MG (TAMIFLU) BOX OF 10 PO SCH (21:00)
--- NOTE | 2017-05-01 21:59 | Diagnostic Imaging Report ---
PROCEDURE: CT head and CT cervical spine without contrast. TECHNIQUE: Multiple contiguous axial images were obtained through the brain and cervical spine without the use of intravenous contrast. Sagittal and coronal reformations through the cervical spine were then performed. INDICATION: Fall COMPARISON: 12/11/2016 FINDINGS: Moderate atrophy. No intracranial hemorrhage. No intracranial mass, mass effect, midline shift, herniation, hydrocephalus, or extra-axial fluid collection. Hyperdensities overlying the bilateral frontal lobes felt to relate to beam hardening artifact. No definite CT evidence of an acute ischemic infarction. Scattered vascular calcifications. The orbits are unremarkable. The paranasal sinuses are clear. The calvarium and extracalvarial soft tissues are unremarkable. Alignment of the cervical spine is well maintained. Alignment of the atlantooccipital joint is well maintained. Vertebral body heights are well-maintained. Scattered disc space height loss is again noted. No acute fracture or dislocation. No destructive osseous process. Scattered facet joint degenerative changes and uncovertebral joint hypertrophy. No high-grade osseous central canal stenosis. Paraspinal soft tissues are unremarkable. IMPRESSION: No acute intracranial abnormality. No acute osseous abnormality within the cervical spine with mild scattered degenerative changes. Moderate intracranial atrophy. Dictated by: Dictated on workstation # [id number]
--- NOTE | 2017-05-01 22:06 | Diagnostic Imaging Report ---
INDICATION: Fall COMPARISON: 12/12/2016 TECHNIQUE: Single frontal radiograph of the chest dated 05/01/2017. FINDINGS: Postsurgical changes of a CABG. The cardiac silhouette is significantly enlarged, appearing more prominent than prior examination. Extensive bilateral pulmonary opacities are present. Small bilateral pleural effusions. No pneumothorax. No acute osseous abnormality. IMPRESSION: Extensive bilateral pulmonary opacities. Findings may relate to pulmonary edema given significant enlargement of the heart, which has increased since the prior examination. Recommend clinical correlation. Dictated by: Dictated on workstation # [id number]
[2017-05-01 23:00] VITALS: BP 126/60
== END 2017-05-01 23:00 | disposition other institution (70) ==
LOC: EDUNIT# 18:05 → ER 18:06
DX: T68.XXXA Hypothermia, initial encounter (principal); T79.6XXA Traumatic ischemia of muscle, initial encounter; A41.9 Sepsis, unspecified organism; R65.21 Severe sepsis with septic shock; N17.9 Acute kidney failure, unspecified; D69.6 Thrombocytopenia, unspecified; E11.9 Type 2 diabetes mellitus without complications; I25.10 Atherosclerotic heart disease of native coronary artery without angina pectoris; I25.2 Old myocardial infarction; E78.00 Pure hypercholesterolemia, unspecified; I95.9 Hypotension, unspecified; I10 Essential (primary) hypertension; E87.5 Hyperkalemia; R41.0 Disorientation, unspecified; D64.9 Anemia, unspecified; G20 Parkinson's disease; B19.10 Unspecified viral hepatitis B without hepatic coma; K59.09 Other constipation; Z95.1 Presence of aortocoronary bypass graft; Z87.19 Personal history of other diseases of the digestive system; Z79.82 Long term (current) use of aspirin; Z79.4 Long term (current) use of insulin; Z94.4 Liver transplant status; T75.89XA Other specified effects of external causes, initial encounter; W19.XXXA Unspecified fall, initial encounter; X31.XXXA Exposure to excessive natural cold, initial encounter
CPT/HCPCS: 36415; 51702; 70450; 71045; 72125; 80053; 80306; 80320; 81000; 82140; 82375; 82550; 82962; 83605; 83690; 83735; 84100; 84484; 85007; 85027; 85379; 85610; 85730; 87040; 87804; 93005; 94640